=== PATIENT | male | born 1980 | race Caucasian/White ===

== ENCOUNTER 2021-06-19 16:30 | Emergency (ER) | payer OTHER ==
[~2021-06-19] VITALS: Ht 188 cm; Wt 108.9 kg
[2021-06-19 17:31] LABS: ABSOLUTE BASOPHILS 0.1 thou/uL (0.0-0.2); ABSOLUTE EOSINOPHILS 0.2 thou/uL (0.0-0.7); ABSOLUTE LYMPHOCYTES 2.1 thou/uL (0.8-5.3); ABSOLUTE MONOCYTES 0.8 thou/uL (0.0-1.2); ABSOLUTE NEUTROPHILS 6.6 thou/uL (1.6-8.1); BASOPHILS 0.7 %; EOSINOPHILS 1.6 %; HEMATOCRIT 46.1 % (42.0-52.0); HEMOGLOBIN 15.7 gm/dL (14.0-18.0); LYMPHOCYTES 21.8 %; MCH 28.9 pg (26.0-34.0); MONOCYTES 8.5 %; MPV 8.2 fl. (7.2-11.1); NUCLEATED RBCS 0 /100WBC; PLATELET COUNT* 262 thou/uL (150-400); POLYS 67.4 %; RBC 5.42 mil/uL (4.50-6.00); RDW-CV 13.2 % (10.5-14.5); WBC 9.8 thou/uL (4.0-11.0)
[2021-06-19 17:42] LABS: CALCIUM 8.9 mg/dL (8.5-10.1); CREATININE 1.2 mg/dL (0.6-1.3); POTASSIUM 3.9 mmol/L (3.5-5.1)
[2021-06-19 17:47] LABS: ALBUMIN 4.3 g/dL (3.4-5.0); TOTAL BILIRUBIN 0.6 mg/dL (<0.1-1.0); TOTAL PROTEIN 7.6 g/dL (6.4-8.2)
[2021-06-19 18:34] LABS: ESR (SEDRATE) 0 mm/hr (0-15)
[2021-06-19] MEDS ORDERED: IBUPROFEN 800800 M1 PO (19:16)
[2021-06-19] MEDS ORDERED: BACTRIM DS TAB1 EACH PO (19:16)
[2021-06-19] MEDS ORDERED: NORCO5 PO (20:17)
[2021-06-19 20:45] VITALS: BP 148/77
== END 2021-06-19 20:45 | disposition home or self-care (01) ==
LOC: M.ERS 16:30
PROVIDERS: Nurse Practitioner Family
DX: S52.021A Displaced fracture of olecranon process without intraarticular extension of right ulna, initial encounter for closed fracture (principal); L08.9 Local infection of the skin and subcutaneous tissue, unspecified; F90.9 Attention-deficit hyperactivity disorder, unspecified type; V86.59XA Driver of other special all-terrain or other off-road motor vehicle injured in nontraffic accident, initial encounter; Y93.I9 Activity, other involving external motion; Y92.488 Other paved roadways as the place of occurrence of the external cause; Y99.8 Other external cause status